=== PATIENT | female | born 1965 | race Two or more races ===

== ENCOUNTER 2022-12-22 16:52 | Emergency (ER) | payer OTHER ==
[~2022-12-22] VITALS: Ht 152.4 cm; Wt 63.0 kg
[2022-12-22] MEDS ORDERED: HYDROcodone-ACET 5/325MG TAB PO ONE (19:15)
[2022-12-22] MEDS ORDERED: TETANUS-DIPTH-ACEL PERTUSSIS 0.5ML SYR Tdap IM ONE (19:15)
[2022-12-22] MEDS ORDERED: CEPHALEXIN 250 MG CAP PO ONE (19:15)
[2022-12-22] MEDS ORDERED: LIDOCAINE 1% HCL (LOCAL ANESTH.) INJ 20ML MDV ID ONE (19:15)
[2022-12-22] MEDS ORDERED: IBU600T PO (20:27)
[2022-12-22] MEDS ORDERED: CEPH500C PO (20:27)
[2022-12-22] MEDS ORDERED: MUPI2OIN2 EX (20:27)
[2022-12-22 21:40] VITALS: BP 132/61; PULSE 69; RESP 18; TEMP 98.4; O2SAT 98
== END 2022-12-22 21:40 | disposition home or self-care (01) ==
LOC: ER 16:52
DX: S61.210A Laceration without foreign body of right index finger without damage to nail, initial encounter (principal); Z79.1 Long term (current) use of non-steroidal anti-inflammatories (NSAID); Z79.899 Other long term (current) drug therapy; W26.8XXA Contact with other sharp object(s), not elsewhere classified, initial encounter; Y93.89 Activity, other specified; Y92.89 Other specified places as the place of occurrence of the external cause; Y99.8 Other external cause status
CPT/HCPCS: 12002; 90471; 90715; 99283; J2001